=== PATIENT | female | born 1975 | race Caucasian/White ===

== ENCOUNTER 2018-10-07 09:28 | Emergency (ER) | payer OTHER ==
[2018-10-07] MEDS ORDERED: Sodium Chloride 0.9% 10 ML Syringe FLUSH PRN (11:29)
[2018-10-07] MEDS ORDERED: Sodium Chloride 0.9% 1,000 ML IV SCH (11:30)
[2018-10-07] MEDS ORDERED: cloNIDine 0.1 MG Tab PO ONE (11:31)
[2018-10-07] MEDS ORDERED: Meclizine 12.5 MG Tab PO ONE (11:32)
--- NOTE | 2018-10-07 11:36 | EDM.PDOC ---
ED HPI GENERAL MEDICAL PROBLEM - General Chief Complaint: ENT Problem Stated Complaint: FEELS LIKE PASSING OUT Time Seen by Provider: 10/07/18 11:03 Source of Information: Reports: Patient History Limitations: Reports: No Limitations - History of Present Illness INITIAL COMMENTS - FREE TEXT/NARRATIVE: Patient is a 43-year-old female who presents to the ED complaining of feeling lightheaded, intermittent nausea, sinus congestion secondary to sinus infection and also abscessed tooth left upper jaw. She states that at times with standing she's felt lightheaded and has had the sensation the room was spinning. She has checked her blood pressure at home and was found to be elevated. She was seen at the walk-in clinic this past Sunday and started on Augmentin to which she has been taking religiously. At that time they found patient's blood pressure to be 149/98. She's also been taking T3s for the pain with relief. She comes to the ED because with checking her blood pressure at home it was elevated. States she's been eating and drinking okay. The been no documented fevers. No pain to the ears. No shortness of breath. No vision changes, headaches, stiff neck, rash , chest pain, shortness of breath, vomiting with only intermittent nausea. Pain to left upper molar has not worsened. Patient does smoke one pack per day. No history of CAD, hypercholesteremia, or diabetes. No prior history of hypertension as well. There is no first degree relatives with heart disease. - Related Data Allergies Allergy/AdvReac Type Severity Reaction Status Date / Time No Known Allergies Allergy Verified 10/07/18 09:41 Home Meds: Home Meds Acetaminophen with Codeine [Tylenol with Codeine #3 Tablet] 1 each PO [id number] PRN #14 tablet 10/07/18 [Rx] Amoxicillin/Clavulanate K [Augmentin 875-125 MG] 1 tab PO BID 10/07/18 [History] Lisinopril 10 mg PO DAILY #30 tablet 10/07/18 [Rx] Meclizine [Antivert] 12.5 mg PO TID PRN #21 tab 10/07/18 [Rx] Past Medical History - Past Health History Medical/Surgical History: Denies Medical/Surgical History Social & Family History - Tobacco Use Smoking Status *Q: Current Every Day Smoker Years of Tobacco use: 20 Packs/Tins Daily: 1 - Caffeine Use Caffeine Use: Reports: Coffee - Recreational Drug Use Recreational Drug Use: No ED ROS GENERAL - Review of Systems Review Of Systems: See Below Constitutional: Denies: Fever, Chills, Malaise, Weakness, Fatigue, Decreased Appetite HEENT: Reports: Dental Pain (Abscess molar to the left upper.), Sinus Problem ( Sinus infection currently on Augmentin), Vertigo (Sensation of the room spinning at times.). Denies: Ear Pain, Eye Pain, Rhinitis, Throat Pain, Throat Swelling, Vision Change Respiratory: Denies: Shortness of Breath, Cough, Sputum Cardiovascular: Reports: Blood Pressure Problem (No prior history of until today.), Lightheadedness (With standing). Denies: Chest Pain, Dyspnea on Exertion, Palpitations, PND, Syncope (Presyncopal episode this morning with walking) Endocrine: Reports: No Symptoms GI/Abdominal: Reports: No Symptoms : Reports: No Symptoms Musculoskeletal: Reports: No Symptoms Skin: Reports: No Symptoms Neurological: Denies: Confusion, Dizziness, Headache, Numbness, Paresthesia, Pre -Existing Deficit, Seizure, Syncope, Tingling, Tremors, Trouble Speaking, Difficulty Walking, Weakness, Change in Speech, Gait Disturbance Psychiatric: Reports: No Symptoms ED EXAM, GENERAL - Physical Exam Exam: See Below Exam Limited By: No Limitations General Appearance: Alert, WD/WN, No Apparent Distress Eye Exam: Bilateral Eye: EOMI, Normal Inspection, Nystagmus (None noted), PERRL , Vision Changes (None noted) Ears: Normal External Exam, Normal Canal, Hearing Grossly Normal, Normal TMs Nose: Normal Inspection, Normal Mucosa, No Blood Throat/Mouth: Normal Inspection, Normal Oropharynx, Normal Voice, No Airway Compromise Head: Atraumatic, Normocephalic Neck: Normal Inspection, Supple, Non-Tender, Full Range of Motion. No: Lymphadenopathy (L), Lymphadenopathy (R) Respiratory/Chest: No Respiratory Distress, Lungs Clear, Normal Breath Sounds, No Accessory Muscle Use, Chest Non-Tender Cardiovascular: Normal Peripheral Pulses, Regular Rate, Rhythm, No Murmur Peripheral Pulses: 2+: Radial (L), Radial (R), Posterior Tibial (L), Posterior Tibial (R) GI/Abdominal: Normal Bowel Sounds, Soft, Non-Tender, No Organomegaly, No Distention Back Exam: Normal Inspection Extremities: Normal Inspection, Normal Range of Motion, Non-Tender, No Pedal Edema Neurological: Alert, Oriented, CN II-XII Intact, Normal Cognition, No Motor/ Sensory Deficits, Other (No facial droop, slurred speech, tongue deviation. No weakness discrepancies to the upper and lower extremities. Finger to nose and rapid alternating movements are intact.) Psychiatric: Normal Affect, Normal Mood Skin Exam: Warm, Dry, Intact, Normal Color, No Rash Course - Vital Signs Last Recorded V/S: Last Vital Signs Temp 98.6 F 10/07/18 09:42 Pulse 98 10/07/18 09:42 Resp 16 10/07/18 09:42 BP 175/102 H 10/07/18 11:59 Pulse Ox 100 10/07/18 09:42 - Orders/Labs/Meds Orders: Active Orders 24 hr Category Date Time Status EKG 12 Lead [EKG Documentation Completion] [RC] STAT Care 10/07/18 11:31 Active Peripheral IV Care [RC] . DIRECTED Care 10/07/18 11:30 Active Peripheral IV Insertion Adult [OM.PC] Routine Oth 10/07/18 11:29 Ordered Labs: Laboratory Tests 10/07/18 10/07/18 10/07/18 Range/Units 11:35 11:35 11:35 WBC 8.79 (3.98-10.04) K/mm3 RBC 4.31 (3.98-5.22) M/mm3 Hgb 13.6 (11.2-15.7) gm/L Hct 41.3 (34.1-44.9) % MCV 95.8 H (79.4-94.8) fl MCH 31.6 (25.6-32.2) pg MCHC 32.9 (32.2-35.5) g/dl RDW Std Deviation 43.2 (36.4-46.3) fL Plt Count 284 (182-369) K/mm3 MPV 10.1 (9.4-12.3) fl Neutrophils % (Manual) 61 H (40-60) % Band Neutrophils % 0 (0-10) % Lymphocytes % (Manual) 22 (20-40) % Atypical Lymphs % 0 % Monocytes % (Manual) 13 H (2-10) % Eosinophils % (Manual) 2 (0.7-5.8) % Basophils % (Manual) 2 H (0.1-1.2) Platelet Estimate Adequate RBC Morph Comment Normal Sodium 139 (136-145) mEq/L Potassium 3.8 (3.5-5.1) mEq/L Chloride 104 (98-107) mEq/L Carbon Dioxide 24 (21-32) mEq/L Anion Gap 14.8 (5-15) BUN 9 (7-18) mg/dL Creatinine 0.7 (0.55-1.02) mg/dL Est Cr Clr Drug Dosing 102.71 mL/min Estimated GFR (MDRD) > 60 (>60) mL/min BUN/Creatinine Ratio 12.9 L (14-18) Glucose 91 (74-106) mg/dL Calcium 9.5 (8.5-10.1) mg/dL Magnesium 1.8 (1.8-2.4) mg/dl Total Bilirubin 0.4 (0.2-1.0) mg/dL AST 21 (15-37) U/L ALT 24 (14-59) U/L Alkaline Phosphatase 94 (46-116) U/L Troponin I < 0.017 (0.00-0.056) ng/mL C-Reactive Protein 6.6 H* (<1.0) mg/dL Total Protein 7.2 (6.4-8.2) g/dl Albumin 3.5 (3.4-5.0) g/dl Globulin 3.7 gm/dL Albumin/Globulin Ratio 1.0 (1-2) Urine Color (Yellow) Urine Appearance (Clear) Urine pH (5.0-8.0) Ur Specific [place] (1.005-1.030) Urine Protein (Negative) Urine Glucose (UA) (Negative) Urine Ketones (Negative) Urine Occult Blood (Negative) Urine Nitrite (Negative) Urine Bilirubin (Negative) Urine Urobilinogen (0.2-1.0) Ur Leukocyte Esterase (Negative) Urine RBC (0-5) /hpf Urine WBC (0-5) /hpf Ur Epithelial Cells (0-5) /hpf Urine Bacteria (FEW) /hpf Urine Mucus (FEW) /hpf 10/07/18 Range/Units 13:18 WBC (3.98-10.04) K/mm3 RBC (3.98-5.22) M/mm3 Hgb (11.2-15.7) gm/L Hct (34.1-44.9) % MCV (79.4-94.8) fl MCH (25.6-32.2) pg MCHC (32.2-35.5) g/dl RDW Std Deviation (36.4-46.3) fL Plt Count (182-369) K/mm3 MPV (9.4-12.3) fl Neutrophils % (Manual) (40-60) % Band Neutrophils % (0-10) % Lymphocytes % (Manual) (20-40) % Atypical Lymphs % % Monocytes % (Manual) (2-10) % Eosinophils % (Manual) (0.7-5.8) % Basophils % (Manual) (0.1-1.2) Platelet Estimate RBC Morph Comment Sodium (136-145) mEq/L Potassium (3.5-5.1) mEq/L Chloride (98-107) mEq/L Carbon Dioxide (21-32) mEq/L Anion Gap (5-15) BUN (7-18) mg/dL Creatinine (0.55-1.02) mg/dL Est Cr Clr Drug Dosing mL/min Estimated GFR (MDRD) (>60) mL/min BUN/Creatinine Ratio (14-18) Glucose (74-106) mg/dL Calcium (8.5-10.1) mg/dL Magnesium (1.8-2.4) mg/dl Total Bilirubin (0.2-1.0) mg/dL AST (15-37) U/L ALT (14-59) U/L Alkaline Phosphatase (46-116) U/L Troponin I (0.00-0.056) ng/mL C-Reactive Protein (<1.0) mg/dL Total Protein (6.4-8.2) g/dl Albumin (3.4-5.0) g/dl Globulin gm/dL Albumin/Globulin Ratio (1-2) Urine Color Yellow (Yellow) Urine Appearance Clear (Clear) Urine pH 6.0 (5.0-8.0) Ur Specific [place] 1.020 (1.005-1.030) Urine Protein Negative (Negative) Urine Glucose (UA) Negative (Negative) Urine Ketones 1+ H (Negative) Urine Occult Blood 3+ H (Negative) Urine Nitrite Negative (Negative) Urine Bilirubin Negative (Negative) Urine Urobilinogen 0.2 (0.2-1.0) Ur Leukocyte Esterase Negative (Negative) Urine RBC 5-10 H (0-5) /hpf Urine WBC 0-5 (0-5) /hpf Ur Epithelial Cells 0-5 (0-5) /hpf Urine Bacteria Rare (FEW) /hpf Urine Mucus Not seen (FEW) /hpf Meds: Medications Discontinued Medications Generic Name Dose Route Start Last Admin Trade Name Freq PRN Reason Stop Dose Admin Clonidine HCl 0.1 mg 10/07/18 11:31 10/07/18 11:59 Catapres PO 10/07/18 11:32 0.1 mg ONETIME ONE Administration Sodium Chloride 1,000 mls @ 150 mls/hr 10/07/18 11:30 10/07/18 11:49 Normal Saline IV 150 mls/hr ASDIRECTED MILLA Administration Meclizine HCl 25 mg 10/07/18 11:31 Antivert PO 10/07/18 11:32 ONETIME ONE Meclizine HCl 12.5 mg 10/07/18 11:32 10/07/18 11:49 Antivert PO 10/07/18 11:33 12.5 mg ONETIME ONE Administration Sodium Chloride 10 ml 10/07/18 11:29 10/07/18 11:50 Saline Flush FLUSH 10 ml ASDIRECTED PRN Administration Keep Vein Open - Re-Assessments/Exams Free Text/Narrative Re-Assessment/Exam: On examination patient's blood pressure is quite elevated 168/104 with a heart rate of 92. She has no history of hypertension. IV established with normal saline 150 mL per hour. Clonidine 0.1 mg by mouth and also meclizine 12.5 mg by mouth. Initial labs and studies include: CBC, chem 14, CRP, magnesium, troponin, UA, chest x-ray one view, and EKG. EKG indicated sinus rhythm at a rate of 77. No acute ST changes noted. Chest x-ray will reveal no acute findings. Labs reviewed: CBC and chemistry panel essentially normal minus CRP is 6.6. Troponin was negative. Mg WNL. I have offered to obtain CT of the sinuses to evaluate for abscess secondary to the dental infection currently being treated with Augmentin. Patient has refused. 1325 Blood pressure on reexamination 131/86. Patient states the lightheadedness has subsided. I will place the patient on an ANDRIA inhibitor with a prescription for meclizine as well. Instructions to check her blood pressure on a daily basis keep a log and follow up with PCP over the next week for reevaluation will be required. She's had 2 readings with elevated blood pressures over the past 4 days. Patient agrees with plan has no further questions concerns. Additional symptomatic treatment for the sinus infection over provided to her as well. Return precautions were discussed with the patient. Departure - Departure Time of Disposition: 13:29 Disposition: Home, Self-Care 01 Condition: Good Clinical Impression: Dental abscess Hypertension Qualifiers: Hypertension type: unspecified Qualified Code(s): I10 - Essential (primary) hypertension Prescriptions: Acetaminophen with Codeine [Tylenol with Codeine #3 Tablet] 1 each PO [id number] PRN #14 tablet PRN Reason: Pain Lisinopril 10 mg PO DAILY #30 tablet Meclizine [Antivert] 12.5 mg PO TID PRN #21 tab PRN Reason: Dizziness Instructions: How to Take Your Blood Pressure, DASH Eating Plan, Dental Abscess , Hypertension, [id number], Preventing Hypertension Referrals: PCP,None [Primary Care Provider] - Forms: ED Department Discharge Additional Instructions: Take lisinopril 10 mg every day. Check her blood pressure every day at the same time. Keep a daily log. Do not take your blood pressure if anxious or and pain. Do not take it after exercising. Follow-up with PCP over the next week for reevaluation. Will start shunt meclizine 12.5 mg 3 times a day as needed for episodic sensation of the room spinning. Utilize Afrin 1 spray to each naris twice daily. No longer than 3 days. Utilize Flonase 1 spray twice a day, Claritin 10 mg every day, and also nasal saline spray throughout the course today as needed. Utilize naproxen 1-2 tabs twice a day for pain. May utilize Tylenol as well 650 mg every 6 hours. For severe pain take T threes as directed. Please return back to the ED if you develop any new or worsening symptoms. - My Orders Last 24 Hours: My Active Orders 10/07/18 11:29 Peripheral IV Insertion Adult [OM.PC] Routine 10/07/18 11:30 Peripheral IV Care [RC] . DIRECTED 10/07/18 11:31 EKG 12 Lead [EKG Documentation Completion] [RC] STAT - Assessment/Plan Last 24 Hours: My Active Orders 10/07/18 11:29 Peripheral IV Insertion Adult [OM.PC] Routine 10/07/18 11:30 Peripheral IV Care [RC] . DIRECTED 10/07/18 11:31 EKG 12 Lead [EKG Documentation Completion] [RC] STAT
--- NOTE | 2018-10-07 12:15 | CR ---
Chest: Portable view of the chest was obtained. Comparison: No prior chest x-ray. Heart size is normal. Tortuous thoracic aorta is seen. Slight parenchymal density within the left midlung is seen most likely due to minimal atelectasis. Lungs otherwise are clear with no acute parenchymal change. Scoliosis is noted within the spine. Impression: 1. Incidental findings. Nothing acute is appreciated. Diagnostic code #2
== END 2018-10-07 13:45 | disposition home or self-care (01) ==
LOC: JD.ED 09:28
DX: K04.7 Periapical abscess without sinus (principal); I10 Essential (primary) hypertension; F17.210 Nicotine dependence, cigarettes, uncomplicated
CPT/HCPCS: 36415; 71045; 80053; 81001; 83735; 84484; 85007; 85027; 86140; 93005; 96360; 96361; 99284; A9270; J7040; 93010